=== PATIENT | male | born 1980 | race Two or more races ===

== ENCOUNTER → 2018-10-03 | Outpatient (CLI) | payer BC ==
--- NOTE | 2018-10-03 10:33 | CARD ---
MR#: [id number] Date of Study: 10/03/2018 Ordering Physician: DANIEL GUERRERO, Referring Physician: DANIEL GUERRERO Tech: Carla Rubio RDCS APPROVED REPORT EXAM: Two-dimensional and M-mode echocardiogram with Doppler and color Doppler. Other Information Quality : Good INDICATION Murmur 2D DIMENSIONS RVDd2.5 (2.9-3.5cm)Left Atrium(2D)4.1 (1.6-4.0cm) IVSd1.0 (0.7-1.1cm)Aortic Root(2D)2.6 (2.0-3.7cm) LVDd4.7 (3.9-5.9cm)LVOT Diameter2.1 (1.8-2.4cm) PWd0.7 (0.7-1.1cm)LVDs3.6 (2.5-4.0cm) FS (%) 23.6 %SV47.8 ml LVEF(%)55.0 (>50%) Aortic Valve AoV Peak Thony.167.4cm/sAoV VTI34.0cm AO Peak GR.11.2mmHgLVOT Peak Thony.115.8cm/s LVOT VTI 23.94cmAO Mean GR.6mmHg FAVIAN (VMAX)2.23ci4YUH (VTI)2.40cm2 Mitral Valve MV E Wiomvdku71.8cm/sMV DECEL EVBE778ec MV A Rqbllnzj08.5cm/sMV RIY81rg E/A Ratio1.2MVA (PHT)4.47cm2 TDI E/Lateral E'5.5E/Medial E'11.0 Pulmonary Vein S1 Qugrkivk64.4cm/sD2 Kjnqchoz27.1cm/s LEFT VENTRICLE The left ventricle is normal size. There is normal left ventricular wall thickness. The left ventricu lar systolic function is normal. The Ejection Fraction is 60%. There is normal LV segmental wall hayley on. RIGHT VENTRICLE The right ventricle is normal size. The right ventricular systolic function is normal. ATRIA The left atrium is mildly dilated. The right atrium size is normal. The interatrial septum is intact with no evidence for an atrial septal defect or patent foramen ovale as noted on 2-D or Doppler imagi ng. AORTIC VALVE The aortic valve is calcified but opens well. Doppler and Color Flow revealed trace aortic regurgitat ion. There is no significant aortic valvular stenosis. MITRAL VALVE The mitral valve is normal in structure and function. There is no evidence of mitral valve prolapse. There is no mitral valve stenosis. Doppler and Color-flow revealed trace mitral regurgitation. TRICUSPID VALVE The tricuspid valve is normal in structure and function. Doppler and Color Flow revealed trace tricus pid regurgitation. There is no tricuspid valve stenosis. PULMONIC VALVE The pulmonic valve is not well visualized. Doppler and Color Flow revealed trace pulmonic valvular re gurgitation. There is no pulmonic valvular stenosis. GREAT VESSELS The aortic root is normal in size. The ascending aorta is not well seen. The IVC is normal in size an d collapses >50% with inspiration. PERICARDIAL EFFUSION There is no evidence of significant pericardial effusion. Critical Notification Critical Value: No <Conclusion> The left ventricular systolic function is normal. The Ejection Fraction is 60%. There is normal LV segmental wall motion. Trace aortic regurgitation. Trace mitral regurgitation. Trace tricuspid regurgitation. There is no evidence of significant pericardial effusion. Signed by : John Cruz, Electronically Approved : 10/03/2018 10:32:58
== END | disposition home or self-care (01) ==
LOC: ECHO 09:03
PROVIDERS: ATTEND Nurse Practitioner Gerontology
DX: I35.8 Other nonrheumatic aortic valve disorders (principal)
CPT/HCPCS: 93306

== ENCOUNTER → 2020-08-07 | Outpatient (CLI) | payer BC ==
--- NOTE | 2020-08-07 16:28 | KCIC ---
INDICATION: Reason: SHORTNESS OF AIR / Spl. Instructions: Short of breath since getting sick 06/2019. Never tested for COVID / History: COMPARISON: None. FINDINGS: 2 view of chest obtained. No focal airspace consolidation. Cardiac silhouette is unremarkable. Mild degenerative changes the sp ine. IMPRESSION: * No focal airspace consolidation or edema. Electronically signed by: Dimitri Schulz MD (08/07/2020 4:26 PM) [id number]
== END ==
LOC: KCIC 14:17
PROVIDERS: ATTEND Family Medicine
DX: R06.02 Shortness of breath (principal)
CPT/HCPCS: 71046

== ENCOUNTER → 2020-11-03 | Outpatient (CLI) | payer BC ==
--- NOTE | 2020-11-04 19:48 | CARD ---
MR#: [id number] Date of Study: 11/03/2020 Ordering Physician: VANE ART, Referring Physician: VANE ART, Tech: Broderick Mendoza [facility] APPROVED REPORT EXAM: Two-dimensional and M-mode echocardiogram with Doppler and color Doppler. Other Information Quality : AverageHR: 59bpm Rhythm : NSRTechnically limited study due to body habitus. INDICATION Dyspnea RISK FACTORS Hypertension Obesity 2D DIMENSIONS Left Atrium(2D)3.6 (1.6-4.0cm)IVSd1.2 (0.7-1.1cm) LVDd4.5 (3.9-5.9cm)LVOT Diameter2.2 (1.8-2.4cm) PWd1.3 (0.7-1.1cm)LVDs2.4 (2.5-4.0cm) FS (%) 45.4 %SV70.1 ml LVEF(%)76.9 (>50%) Aortic Valve AoV Peak Thony.165.0cm/sAoV VTI29.4cm AO Peak GR.10.9mmHgLVOT Peak Thony.117.8cm/s LVOT VTI 24.48cmAO Mean GR.6mmHg FAVIAN (VMAX)1.46pb7HVU (VTI)3.09cm2 Mitral Valve MV E Ofbjnrha08.3cm/sMV DECEL LFLR497ep MV A Uemvywnv67.2cm/sMV QII83si E/A Ratio1.3MVA (PHT)3.37cm2 TDI E/Lateral E'6.8E/Medial E'10.5 Pulmonary Valve PV Peak Oqjcjilc562.4cm/sPV Peak Grad.5mmHg Tricuspid Valve TR P. Cautgbcm386ia/sTR Peak Gr.19mmHg Pulmonary Vein S1 Lwgntgqe90.4cm/sD2 Dlgqtsmp50.4cm/s LEFT VENTRICLE The left ventricle is normal size. There is borderline to mild concentric left ventricular hypertroph y. The left ventricular systolic function is normal and the ejection fraction is within normal range. EF 55% There is normal LV segmental wall motion. The left ventricular diastolic function and filling is normal for age. No left ventricle thrombus noted on this study. RIGHT VENTRICLE The right ventricle is normal size. There is normal right ventricular wall thickness. The right ventr icular systolic function is normal. ATRIA The left atrium size is normal. The right atrium size is normal. The interatrial septum is intact wit h no evidence for an atrial septal defect or patent foramen ovale as noted on 2-D or Doppler imaging. AORTIC VALVE Not well visualized. Doppler and Color Flow revealed no significant aortic regurgitation. There is no significant aortic valvular stenosis. MITRAL VALVE The mitral valve is normal in structure and function. There is no evidence of mitral valve prolapse. There is no mitral valve stenosis. Doppler and Color-flow revealed trace mitral regurgitation. TRICUSPID VALVE The tricuspid valve is normal in structure and function. Doppler and Color Flow revealed no tricuspid valve regurgitation noted. There is no tricuspid valve prolapse or vegetation. There is no tricuspid valve stenosis. PULMONIC VALVE Doppler and Color Flow revealed no pulmonic valvular regurgitation. There is no pulmonic valvular lm nosis. GREAT VESSELS The aortic root is normal in size. The IVC is normal in size and collapses >50% with inspiration. PERICARDIAL EFFUSION There is no pleural effusion. There is no evidence of significant pericardial effusion. Critical Notification Critical Value: No <Conclusion> The left ventricular systolic function is normal and the ejection fraction is within normal range. EF 55% There is normal LV segmental wall motion. Signed by : Chandler Ruffin, Electronically Approved : 11/04/2020 19:47:58
== END ==
LOC: ECHO 13:48
PROVIDERS: ATTEND Internal Medicine Cardiovascular Disease
DX: I51.7 Cardiomegaly (principal); R06.00 Dyspnea, unspecified
CPT/HCPCS: 93306